=== PATIENT | male | born 1970 | race Caucasian/White ===

== ENCOUNTER 2021-01-25 11:58 | Emergency (ER) | payer BC ==
[2021-01-25] MEDS ORDERED: LACTATED RINGERS SOLUTION 1000 ML INFUS.BAG IV ONE (12:24)
[2021-01-25 12:25] VITALS: TEMP 98.1; BMI 39.3
[2021-01-25 12:40] LABS: BASO % 0.5 % (0-2.0); HEMATOCRIT 46.8 % (35.4-49); LYMPH % 25.9 % (8-40); MCH 29.1 pg (25.7-33.7); MCHC 34.2 g/dl (32.0-35.9); MEAN CELL VOLUME 84.9 fl (80-96); MEAN PLT VOLUME 8.5 fl (7.5-11.1); MONO % 7.1 % (3.8-10.2); NEUT % 64.5 % (42.8-82.8); PLATELET COUNT 197 K/MM3 (134-434); RBC 5.52 M/mm3 (4.00-5.60); RDW 12.4 % (11.9-15.9); WHITE BLOOD COUNT 5.9 K/mm3 (4.0-10.8)
[2021-01-25 12:51] LABS: ALBUMIN 4.1 g/dl (3.4-5.0); BILIRUBIN,TOTAL 1.2 mg/dl (0.2-1); CALCIUM 9.3 mg/dl (8.5-10); CREATININE 0.8 mg/dl (0.55-1.3); POTASSIUM 4.2 mmol/L (3.5-5.1); TOT PROT 7.5 g/dl (6.4-8.2)
[2021-01-25 13:31] LABS: VENOUS BASE EXCESS -0.4 mmol/L (-2-2); VENOUS O2 SATURATION 47.8 % (70-80); VENOUS PCO2 54.1 mmHg (38-52); VENOUS PH 7.316 (7.310-7.410)
[2021-01-25] MEDS ORDERED: SODIUM CHLORIDE 1,000 ML IV STA (14:16)
[2021-01-25 15:45] VITALS: BP 130/86; PULSE 88
== END 2021-01-25 15:44 | disposition home or self-care (01) ==
LOC: FER 11:58
PROC: 3E0333Z Introduction of Anti-inflammatory into Peripheral Vein, Percutaneous Approach (ICD-10-PCS; principal; 2021-01-25)
DX: R73.9 Hyperglycemia, unspecified (principal)
CPT/HCPCS: 36415; 80053; 81003; 82010; 82803; 82962; 85025; 93005; 99284-25